=== PATIENT | female | born 1965 | race Caucasian/White ===

== ENCOUNTER 2021-07-06 12:51 | Emergency (ER) | payer OTHER ==
[~2021-07-06] VITALS: Ht 152.4 cm; Wt 54.4 kg
[~2021-07-06 12:51] MED LIST: CIPR500 PO; DIPATR PO; HYDACE5 PO; METPRE4DP PO; NAPR550 PO; NEOCOLOTSU AS; NEOPOLHYDS LEFTEAR; OXYACE5T PO; OXYM.05NI; PROM25 PO; RXHYDACE PO
== END 2021-07-06 14:38 | disposition home or self-care (01) ==
LOC: ER 12:51
DX: S93.402A Sprain of unspecified ligament of left ankle, initial encounter (principal); Z87.891 Personal history of nicotine dependence; X58.XXXA Exposure to other specified factors, initial encounter
CPT/HCPCS: 73610; 99283-25; A9270

== ENCOUNTER 2021-08-07 17:59 | Emergency (ER) | payer OTHER ==
[~2021-08-07] VITALS: Ht 160 cm; Wt 59.0 kg
[2021-08-07] MEDS ORDERED: Cephalexin500 M1 PO (19:03)
== END 2021-08-07 19:16 | disposition home or self-care (01) ==
LOC: ER 17:59
DX: L03.112 Cellulitis of left axilla (principal); Z87.891 Personal history of nicotine dependence
CPT/HCPCS: 99282; A9270

== ENCOUNTER 2024-08-30 13:25 | Emergency (ER) | payer OTHER ==
[~2024-08-30] VITALS: Ht 160 cm; Wt 61.2 kg
[~2024-08-30 13:25] MED LIST changes: +Cephalexin500 M1 PO
[2024-08-30 14:36] VITALS: BP 195/108
[2024-08-30] MEDS ORDERED: AMOX500 PO ×2 (14:44→15:13)
== END 2024-08-30 14:47 | disposition home or self-care (01) ==
LOC: ER 13:25
DX: H66.91 Otitis media, unspecified, right ear (principal); Z79.2 Long term (current) use of antibiotics; Z87.891 Personal history of nicotine dependence
CPT/HCPCS: 99282